=== PATIENT | female | born 1990 | race Two or more races ===

== ENCOUNTER 2020-03-10 16:00 | Outpatient (RCR) | payer OTHER, SELFPAY | END 2020-03-11 08:04 | disposition home or self-care (01) | LOC: HO.PTCHIC 16:00 | PROVIDERS: PCP Student in an Organized Health Care Education/Training Program; Visit Provider Student in an Organized Health Care Education/Training Program | DX: M54.5 Low back pain (principal) | CPT/HCPCS: 97014; 97110; 97140 ==

== ENCOUNTER → 2021-11-29 14:14 | Outpatient (BNVA) | payer OTHER, SELFPAY | PROVIDERS: PCP Student in an Organized Health Care Education/Training Program; Visit Provider Surgery | DX: R22.32 Localized swelling, mass and lump, left upper limb (principal) | CPT/HCPCS: 99202 ==

== ENCOUNTER 2022-01-18 16:50 | Outpatient (REF) | payer OTHER, SELFPAY | END 2022-01-18 16:51 | disposition home or self-care (01) | LOC: HO.LNP 16:50 | PROVIDERS: PCP Student in an Organized Health Care Education/Training Program; Visit Provider Surgery | DX: D17.9 Benign lipomatous neoplasm, unspecified (principal) | CPT/HCPCS: 11403; 88304 ==

== ENCOUNTER 2022-11-29 11:09 | Outpatient (AMB) | payer OTHER, SELFPAY ==
--- NOTE | 2022-11-29 11:10 | A.OFFVIS_ITS ---
Intake Vital Signs 11/29/22 11:17 Weight 154 lb BP 118/65 Blood Pressure Location Rt brachial Position Sitting Pulse 70 Intake Visit Reasons: Lipoma of lower back Intake Note: This patient presents for an assessment for lipoma of the lower back. Patient c/o; ? lipoma lower back, describes pain only when touched or pressed on, ? lipoma right side face- was drained but patient still describes feeling lump on the area. Corporate Fitness Program Coordinator Required: No Accompanied by: Self / Same As Patient Allergies No Known Allergies Allergy (Unverified 11/29/22 11:10) Medication List - Last Reconciled 11/29/22 by Sung Garza MD No Known Home Meds HPI Lipoma of lower back HPI Details 32-year-old female referred for a lipoma of the back. She also points to a ?cyst? on the right preauricular area She says that she has had this small lump on her lower back for years now. This has not increased in size. She has scoliosis and chronic pain so she thought that this small lump may be causing her pain as well. She says that she has a cyst on the right preauricular area for several weeks now and she says that this had been drained by her primary care physician last week. She denies any pain or tenderness with this at this time. [facility] Medical History (Updated 11/29/22 @ 11:27 by Sung Garza MD) Epidermal cyst of face Lipoma of back Multiple lipomas Surgical History History of cholecystectomy Family History Maternal Aunt Cancer Maternal Aunt Cancer Family/Other Cancer Social History Alcohol intake: current Alcohol intake frequency: holidays/special occasions only Patient Tobacco Use Status: Current everyday Tobacco user Review of Systems Const Denies chills and Denies fever(s) Card Denies chest pain, Denies dyspnea and Denies dyspnea on exertion Resp Denies cough, Denies dyspnea and Denies dyspnea on exertion GI Denies hematochezia and Denies change in bowel habits Denies hematuria Musc Details: Chronic back pain Reports back pain and Denies limited range of motion Neuro Denies focal weakness and Denies convulsions Psych Denies depression and Denies mood swings Physical Exam Const General: comfortable and no acute distress Orientation/consciousness: patient oriented x3 HEENT Other: Right preauricular area with note of a small tender induration about 4 mm in size, not draining, no redness Neck Neck: Yes no lymphadenopathy Resp Auscultation: clear to auscultation bilaterally Cardio Rhythm: regular rhythm GI Palpation (GI): Soft to palpation, nontender and no guarding Back/Spine/Pelvis Other: Small lipomatous mass, deep subcutaneous, on the lower back, about 8 mm in size Neuro General: patient oriented x3 Assessment & Plan Assessment & Plan (1) Lipoma of back: Code(s): D17.1 - Benign lipomatous neoplasm of skin and subcutaneous tissue of trunk Plan: She actually has what appears to be a is very small lipoma on the lower back as well as an epidermal cyst on the right preauricular area. I explained to her the technique of excision. I reviewed the risks including but not limited to bleeding, infections, poor healing, postop pain, as well as the benefits and alternatives. She says that these do not bother at this time. It is unlikely that the small lipomatous mass is causing her chronic back pain as she also has scoliosis. She says she will come back to me to the office if she decides to proceed with excision. (2) Epidermal cyst of face: Code(s): L72.0 - Epidermal cyst Plan: She says that this had been drained by her primary care physician a week ago. She says that this has not been bothering her and she wants to hold off on excision for now. Coding Level of Care Code Est Pt Level 3 (70353) Diagnoses Lipoma of back D17.1 Epidermal cyst of face L72.0
[2022-11-29 11:17] VITALS: BP 118/65; PULSE 70
== END 2022-11-29 11:23 | disposition home or self-care (01) ==
PROVIDERS: PCP Student in an Organized Health Care Education/Training Program; Referring Provider Internal Medicine; Visit Provider Surgery
DX: D17.1 Benign lipomatous neoplasm of skin and subcutaneous tissue of trunk (principal); L72.0 Epidermal cyst
CPT/HCPCS: 99213

== ENCOUNTER → 2022-11-29 11:09 | Outpatient (BNVA) | payer OTHER, SELFPAY | PROVIDERS: PCP Student in an Organized Health Care Education/Training Program; Referring Provider Internal Medicine; Visit Provider Surgery | DX: D17.1 Benign lipomatous neoplasm of skin and subcutaneous tissue of trunk (principal); L72.0 Epidermal cyst | CPT/HCPCS: 99212 ==

== ENCOUNTER 2022-12-25 14:28 | Outpatient (REF) | payer OTHER, SELFPAY ==
[2022-12-26 04:01] LABS: ~Hepatitis C Antibody Nonreactive (Nonreactive)
[2022-12-26 04:06] LABS: HBS Num1 58.88 mIU/mL (0-7.99); HBc Num1 0.08 S/CO (0.00-0.79); HBsAGNum1 0.44 S/CO (0.00-0.99); HIV AB/AG Nonreactive (Nonreactive); HIV Num 1 0.05 S/CO (0.00-0.99); Hepatitis B Core Antibody Nonreactive (Nonreactive); Hepatitis B Surface Antigen Negative (Negative); ~Hepatitis B Surface Antibody REACTIVE (Nonreactive)
[2022-12-26 04:11] LABS: Syphilis Screen Nonreactive (Nonreactive)
[2022-12-26 09:33] LABS: CT PCR NOT DETECTED (Not Detect.); NG PCR NOT DETECTED (Not Detect.)
[2022-12-26 10:47] LABS: BV Int Neg Control Negative (Negative); BV Int Pos Control Positive (Positive)
[2023-12-27 10:46] LABS: Bacterial Vaginosis PCR POSITIVE (Negative); Candida Group PCR NOT DETECTED (Not Detect); Candida glab krusei PCR NOT DETECTED (Not Detect); Trichomonas vaginalis PCR NOT DETECTED (Not Detect)
== END 2022-12-25 14:29 | disposition home or self-care (01) ==
LOC: HO.CHCLDS 14:28
PROVIDERS: Visit Provider Advanced Practice Midwife
DX: Z11.3 Encounter for screening for infections with a predominantly sexual mode of transmission (principal)
CPT/HCPCS: 0352U; 0353U; 36415; 86704; 86706; 86780; 86803; 87340; 87389; 87480; 87510; 87660

== ENCOUNTER 2025-01-11 16:13 | Outpatient (REF) | payer OTHER, SELFPAY ==
--- OUTSIDE RECORDS SUMMARY | 2025-01-11 10:00 | XMS_ITS | Encounter Summary ---
Author Organization [employer] Address [address] [place] [address] [address] [place] [address] Care Team Providers Care Hemmer Lockstitch Name Role Phone Hayley Mullins MD Primary Care Provider [phone] Reason for Visit * Reason Comments pap Encounter Details Date Type Department Care Team (Latest Contact Info) Description 01/11/2025 10:00 AM EDT Procedure Visit [facility] [address] [place], [place] [phone] Edna Kim, [facility] [address] [place] [address] Cervical cancer screening (Primary Dx); Rash Social History Tobacco Use Types Packs/Day Years Used Date Smoking Tobacco: Every Day Cigarettes Passive Smoke Exposure: Never Smokeless Tobacco: Never Alcohol Use Standard Drinks/Week Comments Never 0 (1 standard drink = 0.6 oz pur e alcohol) Depression Answer Date Recorded Patient Health Questionnaire-9 Score 9 05/14/2024 Patient Health Questionnaire-9 Score 9 05/14/2024 Last PHQ-9: Questionnaire Data Not on file 0 05/14/2024 Housing Stability Answer Date Recorded What is your housing situation today? I have ashlee sing 01/11/[address] you li ve. Do you have problems with any of the following? Pests such as bugs, ants, or mice;Mold 01/11/2025 Food Insecurity Answer Date Recorded Within the past 12 months, y ou worried that your food would run out before you got money to buy more: Sometimes True 2024 Within the past 12 months,th e food you bought just didn't last and you didn't have enough money to get more: Sometimes True 01/11/2025 Transportation Answer Date Recorded In the past 12 months, has l ack of transportation kept you from medical appts, meetings, work or from getting things needed for daily living? No 12/31/2023 Utilities Answer Date Recorded In the past 12 months, has t he electric, gas, oil or water company threatened to shut off services in your home? Yes 01/11/2025 Depression Answer Date Recorded Patient Health Questionnaire-2 Score 2 05/14/2024 Internet Access Answer Date Recorded Internet Access Q1 Yes 01/06/2024 Internet Access Q2 Not on file 01/06/2024 Comments No Intention Date Recorded No desire to become (finding) 0 01/11/2025 Sex and Gender Information Value Date Recorded Sex Assigned at Female 03/05/2022 10:19 AM EDT Legal Sex Female 10:19 AM EDT Gender Identity Female 03/05/2022 10:19 AM EDT Sexual Orientation Straight 03/05/2022 10 :19 AM EDT documented as of this encounter Last Filed Vital Signs Vital Sign Reading Time Taken Comments Blood Pressure 112/68 01/11/2025 10:31 AM EDT Pulse 64 01/11/2025 10:31 AM EDT Temperature 36.7 C (98 F) 01/11/2025 10:31 AM EDT Respiratory Rate 14 01/11/2025 10:31 AM EDT Oxygen Saturation 98% 01/11/2025 10:31 AM EDT Inhaled Oxygen Concentration - - Weight 69.5 kg (153 lb 3.2 oz) 01/11/2025 10:31 AM EDT Height - - Body Mass Index 26.3 09/17/2024 11:37 AM EDT documented in this encounter Progress Notes * Edna Kim CNM - 01/11/2025 10:00 AM EDT Subjective Patient ID: Adeel Muniz is a 34 y.o. female who presents for pap Pap NIL/HPV neg 12/2021. Pap NIL/HPV negative 2018 preceded by ASCUS, HPV positive pap and negative colposcopy. Cotest due now. Gonorrhea/Chlamydia/trichomonas, HIV, syphilis and Hep C negative, Hep B immune 12/2022. Treated forbacterial vaginosis 12/2023. Not sexually active in over a year. Not planning in next year. Denies vaginal symptoms today. Former [facility] partner incarcerated, no predicted release date. Feels much better being out of relationship, no current safety concerns, but wonders about what will happen when he is released. DiscussedAlianza as resource, knows to let me know if she needs resources. Would like breast and pelvic exam today. Notes rash between breasts which flares in summer time. Monthly menses x 4-5d. No heavy flow or severe cramping. Review of Systems Genitourinary: Negative for dyspareunia, dysuria, frequency, genital sores, hematuria, menstrual problem, pelvic pain, urgency, vaginal bleeding, vaginal discharge and vaginal pain. No abnormal bleeding, no breast pain, no breast mass, no nipple discharge Objective BP 112/68 (BP Location: Left arm, Patient Position: Sitting, BP Cuff Size: Adult) Pulse 64 Temp98 ??F (36.7 ??C) (Oral) Resp 14 Wt 153 lb 3.2 oz (69.5 kg) LMP 01/04/2025 SpO2 98% BMI 26.30 kg/m?? Physical Exam High Frequency Mill Operator present: declines baccarat manager. Constitutional: Appearance: Normal appearance. Chest: Breasts: Right: Normal. No swelling, bleeding, inverted nipple, mass, nipple discharge, skin change or tenderness. Left: Normal. No swelling, bleeding, inverted nipple, mass, nipple discharge, skin change or tenderness. Comments: Flat irregular hyperpigmented rash between breasts, no scaling. Supernumerary nipple under right breast Genitourinary: General: Normal vulva. Labia: Right: No rash, tenderness, lesion or injury. Left: No rash, tenderness, lesion or injury. Vagina: Normal. No signs of injury and foreign body. No vaginal discharge, erythema, tenderness, bleeding or lesions. Cervix: No cervical motion tenderness, discharge, friability, lesion, erythema, cervical bleeding or eversion. Uterus: Normal. Not enlarged and not tender. Adnexa: Right adnexa normal and left adnexa normal. Right: No mass, tenderness or fullness. Left: No mass, tenderness or fullness. Lymphadenopathy: Upper Body: Right upper body: No supraclavicular or axillary adenopathy. Left upper body: No supraclavicular or axillary adenopathy. Neurological: Mental Status: She is alert. Psychiatric: Mood and Affect: Mood normal. Behavior: Behavior normal. Assessment/Plan Diagnoses and all orders for this visit: Cervical cancer screening - Pap Smear Cotest 3 years if normal/HPV negative. Will contact with results. Urged smoking cessation. May return at any time if sexually active for control/STI testing as needed. Rash Not consistent with tinea on exam. Advised to schedule PCP appointment for further evaluation. documented in this encounter Plan of Treatment Scheduled Orders Name Type Priority Associated Diagnoses Orde r Schedule Pap Smear Pathology and Cytology Routine Cervical cancer screening Ordered: 01/11/2025 documented as of this encounter Visit Diagnoses Diagnosis Cervical cancer screening- Primary Screening for malignant neoplasm of the cervix Rash Rash and other nonspecific skin eruption documented in this encounter Additional Health Concerns Assessment Noted Time PHQ-9 Depression Total Score: 9 05/14/19 25 9:49 AM EST documented as of this encounter Care Teams Hemmer Lockstitch Relationship Specialty Start Date End Date Hayley Mullins MD [address] [place] [id number] PCP - General Family Medicine 05/13/13 documented as of this encounter
--- OUTSIDE RECORDS SUMMARY | 2025-01-11 18:46 | XMS_ITS | Clinical Summary ---
Author Organization [facility] it Address [address] [place] [address] Care Team Providers Care Manager Water Wastewater Name Role Phone Unavailable Primary Care Provider Unavailabl e Surgical History Surgery Date Site/Laterality Comments OTHER SURGICAL HISTORY PROCEDURE: [place] UNLISTED PX [facility]ECK[facility]S DIVERTICULUM & MESENTERY Medical History Medical History Date Comments ASCUS with positive high ris k HPV cervical 2014 DX:ASCUS with positive high risk HPV cervical; COMMENT: Colpo done and benign Family History Medical History Relation Name Comments Other cancer Aunt Diabetes Maternal Grandmother Hypertension Maternal Grandmother Other cancer Other Diabetes Paternal Grandfather Hypertension Paternal Grandmother Relation Name Status Comments Aunt Alive Maternal Grandmother Other Alive Paternal Grandfather Paternal Grandmother Social History Tobacco Use Types Packs/Day Years Used Date Smoking Tobacco: Heavy Smoker Cigarettes Alcohol Use Standard Drinks/Week Comments No 0 (1 standard drink = 0.6 oz pur e alcohol) Comments Unknown Sex and Gender Information Value Date Recorded Sex Assigned at Not on file Legal Sex Female 11:19 PM EST Gender Identity Not on file Sexual Orientation Not on file Obstetrics History Plan of Treatment Health Maintenance Due Date Last Done Comments DTaP,Tdap,and Td Vaccines (1 - Tdap) 2007 Hepatitis B Vaccines (1 of 3 - 19+ 3-dose series) 2007 Cervical Cancer Screening: P ap Smear 2009 Depression Screening 05/06/2024 COVID-19 Vaccine ( - 2023-2 5 season) 2025 Influenza Vaccine (#1) 2025 HIB Vaccines Aged Out No longer eligi ble based on patient's age to complete this topic HPV Vaccines Aged Out No longer eligi ble based on patient's age to complete this topic Hepatitis A Vaccines Aged Out No long er eligible based on patient's age to complete this topic IPV Vaccines Aged Out No longer eligi ble based on patient's age to complete this topic MMR Vaccines Aged Out No longer eligi ble based on patient's age to complete this topic Meningococcal ACWY Vaccine Aged Out N o longer eligible based on patient's age to complete this topic Meningococcal B Vaccine Aged Out No l onger eligible based on patient's age to complete this topic Pneumococcal Vaccine: Pediat rics (0 to 5 Years) and At-Risk Patients (6 to 49 Years) Aged Out No longer eligible b ased on patient's age to complete this topic RSV Immunization Patients Un mac 20 months Aged Out No longer eligible b ased on patient's age to complete this topic Varicella Vaccines Aged Out No longer eligible based on patient's age to complete this topic
--- OUTSIDE RECORDS SUMMARY | 2025-01-11 18:46 | XMS_ITS | Encounter Summary ---
Author Organization [employer] Address [address] [place] [address] Care Team Providers Care Licensing Registration Examiner Name Role Phone Hayley Mullins MD Primary Care Provider [phone] Encounter Details Date Type Department Care Team (Late st Contact Info) Description 01/08/2025 Telephone [facility] [address] [place], [place] [id number] Paige Desai MA Social History Tobacco Use Types Packs/Day Years [...] your housing situation today? I have ashlee martinez 12/31/[address] you li ve. Do you have problems with any of the following? None of the above 12/31/2023 Food Insecurity Answer Date Recorded Within the past 12 months, y ou worried that your food would run out before you got money to buy more: Never True 12/31/2023 Within the past 12 months,th e food you bought just didn't last and you didn't have enough money to get more: Never True Transportation Answer Date Recorded In the past 12 months, has l ack of transportation kept you from medical appts, meetings, work or from getting things needed for daily living? No 12/31/2023 Utilities Answer Date Recorded In the past 12 months, has t he electric, gas, oil or water company threatened to shut off services in your home? No 12/31/2023 Depression Answer Date Recorded Patient Health Questionnaire-2 Score 2 05/14/2024 Internet Access Answer Date Recorded Internet Access Q1 Yes 01/06/2024 Internet Access Q2 Not on file 01/06/2024 Comments No Sex and Gender Information Value Date Recorded Sex Assigned at Female 03/05/2022 10:19 AM EDT Legal Sex Female 10:19 AM EDT Gender Identity Female 03/05/2022 10:19 AM EDT Sexual Orientation Straight 03/05/2022 10 :19 AM EDT documented as of this encounter Miscellaneous Notes * Telephone Encounter - Paige Desai MA - 01/08/2025 11:12 AM EDT Chart Prep Labs: not done Images: not applicable Referrals: not applicable Vaccines due: Covid, Flu, PCV20, and Hep B Screenings: pap smear Overdue care gaps: SBIRT, SDOH, and Disability screen documented in this encounter Plan of Treatment Not on file documented as of this encounter Visit Diagnoses Not on filedocumented in this encounter Additional Health Concerns Assessment Noted Time PHQ-9 Depression Total Score: 9 05/14/19 25 9:49 AM EST documented as of this encounter Care Teams Licensing Registration Examiner Relationship Specialty Start Date End Date Hayley Mullins MD [address] [place] [id number] PCP - General Family Medicine 05/13/13 documented as of this encounter
--- OUTSIDE RECORDS SUMMARY | 2025-01-11 18:46 | XMS_ITS | Encounter Summary ---
Author Organization [employer] Address [address] [place] [address] [address] [place] [address] Care Team Providers Care Music Supervisor Name Role Phone Hayley Mullins MD Primary Care Provider [phone] Encounter Details Date Type Department Care Team (Latest Contact Info) Description 01/11/2025 Travel Social History Tobacco Use Types Packs/Day Years [...] housing situation today? I have ashlee martinez 01/11/[address] you li [...] AM EDT documented as of this encounter Plan of Treatment Not on file documented as of this encounter Visit Diagnoses Not on filedocumented in this encounter Additional Health Concerns Assessment Noted Time PHQ-9 Depression Total Score: 9 05/14/19 25 9:49 AM EST documented as of this encounter Care Teams Music Supervisor Relationship Specialty Start Date End Date Hayley Mullins MD [address] [place] [address] PCP - General Family Medicine 05/13/13 documented as of this encounter
--- OUTSIDE RECORDS SUMMARY | 2025-01-11 18:46 | XMS_ITS | Clinical Summary ---
Author Organization [employer] Address [address] [place] [address] [address] [place] [address] Care Team Providers Care Primer Boxer Name Role Phone Hayley Mullins MD Primary Care Provider [phone] Allergies No known active allergies Medications Omeprazole 20 MG tablet delayed-release Take 1 tablet (20 mg) by mouth Once per day. 30 tablet 11 05/14/2024 Active cyclobenzaprine (Flexeril) 10 MG tablet Take 1 tablet (10 mg) by mouth 2 times daily for 10 days. 20 tablet 09/17/2024 Active Diclofenac Sodium (Voltaren) 1 % gel Use topical BID 100 g 3 09/17/2024 Active Active Problems Problem Noted Date Diagnosed Date Headache 08/02/2009 Tobacco dependence syndrome 08/02/2009 Resolved Problems Problem Noted Date Diagnosed Date Resolved Date Viral upper respiratory tract infection 05/14/2022 05/14/2024 Assessment & Plan (05/14/2022 4:13 PM EST): Recommended supportive care, will send decongestant. Will f/u with PCR results, RTC if worsening or no improvement. Encounters Date Type Department Care Team Description 01/11/2025 10:00 AM EDT Procedure Visit [facility] [address] [place] [phone] Edna Kim CNM Cervical cancer screening (Primary Dx); Rash 01/11/2025 Travel 01/08/2025 Telephone [facility] [address] [place] [address] Paige Desai MA from Last 3 Months Immunizations Immunization Administration Dates Next Due Influenza injectable quadrivalent preservative f ree 01/27/2020 Influenza, Split (incl. purified surface antigen ) 02/18/2013 Pfizer Covid-19 Vaccine 12+ 05/04/2021 Tdap 02/10/2019 Social History Tobacco Use Types Packs/Day Years Used Date Smoking Tobacco: Every Day Cigarettes Passive Smoke Exposure: Never Smokeless Tobacco: Never Tobacco Cessation:Ready to Q uit: Not Asked; Counseling Given: Not Answered Alcohol Use Standard Drinks/Week Comments Never 0 [...] t he electric, gas, oil or water [employer] threatened to shut off services in your [...] Orientation Straight 03/05/2022 10 :19 AM EDT Last Filed Vital Signs Vital Sign Reading Time Taken Comments Blood Pressure 112/68 01/11/2025 10:31 AM EDT Pulse 64 01/11/2025 10:31 AM EDT Temperature 36.7 C (98 F) 01/11/2025 10:31 AM EDT Respiratory Rate 14 01/11/2025 10:31 AM EDT Oxygen Saturation 98% 01/11/2025 10:31 AM EDT Inhaled Oxygen Concentration - - Weight 69.5 kg (153 lb 3.2 oz) 01/11/2025 10:31 AM EDT Height 162.6 cm (5' 4 ) 09/17/2024 11:37 AM EDT Body Mass Index 26.3 09/17/2024 11:37 AM EDT Plan of Treatment Health Maintenance Due Date Last Done Comments Lipid Panel 1988 HPV Vaccines (1 - 3-dose series) 2003 Hepatitis B Vaccines (1 of 3 - 19+ 3-dose series) 2007 Pneumococcal Vaccine: Pediatrics (0 to 5 Years) and At-Risk Patients (6 to 49) Years (1 of 2 - PCV) 2007 Depression Monitoring 11/11/2024 05/14/2024 , 05/14/2024 Cervical Cancer Screening 12/26/2024 HPV/Cotest 12/26/2024 12/26/2021, 07/29/2018 Pap Smear 12/26/2024 12/26/2021 COVID-19 Vaccine (2 - 2024-2 6 season) 2025 05/04/2021 Influenza Vaccine (#1) 2025 0, 02/18/2013 Tobacco Screening 09/17/2025 09/17/2024 Alcohol/Substance Use Screening 01/11/2026 01/11/2025 Disability Screening 01/11/2026 01/11/2025 Family Planning (PISQ) 01/11/2026 01/11/2025 SDOH Screening 01/11/2026 01/11/2025 DTaP/Tdap/Td Vaccines (2 - T d or Tdap) 02/10/2029 02/10/2019 Zoster Vaccines (1 of 2) 2038 RSV Patients and Patients Aged 60 years or older (1 - 1-dose 75+ series) 2063 HIV Screening Completed 12/25/2022 Hepatitis C Screening Completed 12/25/2022 HIB Vaccines Aged Out No longer eligi [...] patient's age to complete this topic Meningococcal Vaccine Aged Out No kathleen yoselin eligible based on patient's age to complete this topic RSV under 20 months Aged Out No longe r eligible based on patient's age to complete this topic Rotavirus Vaccines Aged Out No longer eligible based on patient's age to complete this topic Procedures Procedure Name Priority Date/Time Associated Diagnosis Comments HEPATITIS C ANTIBODY REFLEX Routine 12/25/2022 2:34 PM EDT HIV ANTIBODY/ANTIGEN (BOZENA EATON) Routine 12/25/2022 2:34 PM EDT THINPREP IMAGING PAP AND HPV MRNA E6/E7 WITH REFLEX TO HPV 16,18/45 Routine 12/26/2021 9:09 AM EDT from Last 3 Months or Most Recently Relevant to Health Maintenance Results * Hepatitis C Antibody Reflex (12/25/2022 2:34 PM EDT) Hepatitis C Antibody Nonreactive Nonreactive [facility] Comment:Antibodies to HCV no t detected; does not exclude early acuteHCV infection. 12/25/2022 2:34 PM EDT 12/25/2022 5:33 PM EDT us Edna [facility] BLOOD ORDERABLES Juliane stratton Result [facility] [address] [place] [address] [phone] * HIV Ab/Ag ([place] [facility]) (12/25/2022 2:34 PM EDT) HIV AB/AG Nonreactive Nonreactive [facility] Comment:HIV-1 p24 Ag and/or HIV-1/HIV-2 Ab not detected.A test result that is nonreactive does not exclude thepossibility of exposure to or infection with HIV-1 and/orHIV-2. Nonreactive results in this assay for individualswith prior exposure to HIV-1 and/or HIV-2 may be due toantigen and antibody levels that are below the limit ofdetection of this assay.The [employer] HIV Ag/Ab Combo assay result andsupplemental assay results should be interpreted inconjunction with the patient's clinical presentation,history and other laboratory results. If the results areinconsistent with clinical evidence, additional testing issuggested to confirm the result. 12/25/2022 2:34 PM EDT 12/25/2022 5:33 PM EDT Edna Kim [facility] BLOOD ORDERABLES Juliane l Result [facility] [address] [place] [phone] * THINPREP TIS PAP AND HPV mRNA E6/E7 WITH REFLEX TO HPV 16,18/45 (12/26/2021 9:09 AM EDT) Clinical Information: [facility] COMMENT SEE COMMENT [facility] Comment: EXPLANATORY NOTE: The Pap is a screening test for cervical cancer. It is not a diagnostic test and is subject to false negative and false positive results. It is most reliable when a satisfactory sample, regularly obtained, is submitted with relevant clinical findings and history, and when the Pap result is evaluated along with historic and current clinical information. COMMENT: This Pap test has been evaluated with computer assisted technology. [facility] Cytotechnologis t: SEE COMMENT [facility] Comment: WAC, CT(ASCP) CT screening location: [place] [address] HPV nRNA E6/E7 Not Detected Not Detected [facility] Comment: Methodology: Industrial Education Teacher-Mediated Amplification This assay detects E6/E7 viral messenger RNA (mRNA) from 14 high-risk HPV types (16,18,31,33,35,39,45,51,52,56,58,59,66,68). Cervical sources are required for HPV testing. If a vaginal source from a patient who has had a total hysterectomy with removal of cervix was submitted, please contact the testing laboratory for alternative testing options. For additional information, please refer to http://education.[employer] ([employer])/faq/WVS497d4 (This link if provided for information/ educational purposes only.) Interpretation/ Result: Negative for intraepithelial lesion or malignancy. [facility] LMP: 12/20/2021 [facility] Prev. BX: NONE GIVEN [facility] Prev. PAP: NIL/HPV NEG 2019/ASCUS +HPV, NEG [facility] SOURCE: None given [facility] Statement Of Adequacy: SEE COMMENT [facility] Comment: Satisfactory for evaluation. Endocervical/transformation zone component present. 12/26/2021 9:09 AM EDT us Edna [facility] PATHOLOGY ORDERABLES Final Result [facility] [address] from Last 3 Months or Most Recently Relevant to Health Maintenance Insurance [employer] [place] [phone] [employer] [place] [phone] Care Teams Primer Boxer Relationship Specialty Start Date End Date Hayley Mullins MD [address] [place] [phone] PCP - General Family Medicine 05/13/13
== END 2025-01-11 16:14 | disposition home or self-care (01) ==
LOC: HO.HHCLNP 16:13
PROVIDERS: Visit Provider Advanced Practice Midwife
DX: Z12.4 Encounter for screening for malignant neoplasm of cervix (principal)
CPT/HCPCS: 87626; 88175